=== PATIENT | male | born 1955 | race African-American/Black ===

== ENCOUNTER 2022-07-24 10:47 | Inpatient (IN) | payer OTHER ==
[2022-07-24 11:27] VITALS: BMI 22.7
[2022-07-24] MEDS ORDERED: ONDANSETRON *ODT* 4 MG TABLET SL PRN (14:25)
[2022-07-24] MEDS ORDERED: BISMUTH SUBSALICYLATE 524 MG/30 ML PO PRN (14:25)
[2022-07-24] MEDS ORDERED: NALOXONE HCL 0.4 MG/ML VIAL IM PRN (14:25)
[2022-07-24] MEDS ORDERED: BENZOCAINE/MENTHOL (CHLORASEPTIC ) LOZENGE MM PRN (14:25)
[2022-07-24] MEDS ORDERED: BENZONATATE 200 MG CAPSULE PO PRN (14:25)
[2022-07-24] MEDS ORDERED: guaiFENesin 600 MG TABLET.ER (FP) PO PRN (14:25)
[2022-07-24] MEDS ORDERED: P-EPHED 60MG/TRIPROLIDI 2.5MG TABLET PO PRN (14:25)
[2022-07-24] MEDS ORDERED: POLYETHYLENE GLYCOL (HEALTHYLAX) 3350 17 GM PACKET PO PRN (14:25)
[2022-07-24] MEDS ORDERED: LOPERAMIDE HCL 2 MG CAPSULE PO PRN (14:25)
[2022-07-24] MEDS ORDERED: NICOTINE 10 MG CARTRIDGE (INHALER) IH PRN (14:25)
[2022-07-24] MEDS ORDERED: ACETAMINOPHEN 325 MG TABLET (FP) PO PRN (14:25)
[2022-07-24] MEDS ORDERED: MAGNESIUM HYDROX 2400MG/30ML ORAL SUSPENSION 30 ML CUP PO PRN (14:25)
[2022-07-24] MEDS ORDERED: NALOXONE HCL (KLOXXADO) 8 MG SPRAY NS PRN (14:25)
[2022-07-24] MEDS ORDERED: IBUPROFEN 400 MG TABLET (FP) PO PRN (14:25)
[2022-07-24] MEDS: ASPIRIN 81 MG CHEWABLE TABLETS PO SCH (17:57)
[2022-07-24] MEDS: hydrOXYzine PAMOATE 25 MG CAPSULE (FP) PO PRN (17:57)
[2022-07-24] MEDS: LISINOPRIL 5 MG TABLET PO SCH (20:21)
[2022-07-24] MEDS: THIAMINE HCL 100 MG TABLET (FP) PO SCH (22:21)
[2022-07-24] MEDS: MELATONIN 5 MG TABLETS PO PRN (23:20)
[2022-07-25] MEDS ORDERED: methaDONE HCL 10 MG TABLET (FOR DETOX USE ONLY) PO ONE (10:03)
[2022-07-25] MEDS: chlordiazePOXIDE HCL 25 MG CAPSULE PO SCH ×3 (10:27→22:11)
[2022-07-25] MEDS: PRENATAL VITAMINS W/ FOLIC ACID TABLET (FP) PO SCH (10:27)
[2022-07-25] MEDS: LISINOPRIL 5 MG TABLET PO SCH (10:27)
[2022-07-25] MEDS: ASPIRIN 81 MG CHEWABLE TABLETS PO SCH (10:27)
[2022-07-25] MEDS: NICOTINE POLACRILEX 2 MG GUM BUC PRN (13:24)
[2022-07-25] MEDS: THIAMINE HCL 100 MG TABLET (FP) PO SCH (22:11)
[2022-07-25] MEDS: cloNIDine HCL 0.1 MG TABLET PO PRN (22:11)
[2022-07-25] MEDS: MELATONIN 5 MG TABLETS PO PRN (22:11)
[2022-07-26] MEDS: chlordiazePOXIDE HCL 25 MG CAPSULE PO SCH ×4 (05:51→22:12)
[2022-07-26] MEDS: ASPIRIN 81 MG CHEWABLE TABLETS PO SCH (10:18)
[2022-07-26] MEDS: LISINOPRIL 5 MG TABLET PO SCH (10:18)
[2022-07-26] MEDS: PRENATAL VITAMINS W/ FOLIC ACID TABLET (FP) PO SCH (10:18)
[2022-07-26] MEDS: MAG HYDROX/AL HYDROX/SIMETH 30 ML UNIT-DOSE CUP PO PRN (11:21)
[2022-07-26] MEDS: NICOTINE POLACRILEX 2 MG GUM BUC PRN (11:23)
[2022-07-26 11:25] LABS: HEMATOCRIT 33.2 % (35.4-49); MCH 30.9 pg (25.7-33.7); MCHC 33.1 g/dl (32.0-35.9); MEAN CELL VOLUME 93.6 fl (80-96); MEAN PLT VOLUME 9.9 fl (7.5-11.1); PLATELET COUNT 143 10^3/uL (134-434); RBC 3.55 M/mm3 (4.00-5.60); RDW 18.9 % (11.9-15.9); WHITE BLOOD COUNT 3.2 K/mm3 (4.0-10.0)
[2022-07-26 11:44] LABS: ALBUMIN 3.1 g/dl (3.4-5.0)
[2022-07-26 11:47] LABS: CALCIUM 8.9 mg/dL (8.5-10.1); CREATININE 0.9 mg/dL (0.55-1.3)
[2022-07-26 11:49] LABS: BILIRUBIN,TOTAL 0.4 mg/dL (0.2-1); TOT PROT 6.6 g/dl (6.4-8.2)
[2022-07-26] MEDS: NICOTINE 21 MG/24 HOURS TOPICAL PATCH TD SCH (14:54)
[2022-07-26] MEDS: IBUPROFEN 600 MG TABLET (FP) PO PRN (17:41)
[2022-07-26] MEDS: hydrOXYzine PAMOATE 25 MG CAPSULE (FP) PO PRN (22:12)
[2022-07-26] MEDS: THIAMINE HCL 100 MG TABLET (FP) PO SCH (22:12)
[2022-07-26] MEDS: MELATONIN 5 MG TABLETS PO PRN (22:12)
[2022-07-27] MEDS: chlordiazePOXIDE HCL 25 MG CAPSULE PO SCH ×5 (05:20→23:08)
[2022-07-27] MEDS: hydrOXYzine PAMOATE 25 MG CAPSULE (FP) PO PRN ×2 (06:34→22:25)
[2022-07-27] MEDS ORDERED: methaDONE HCL 10 MG TABLET (FOR DETOX USE ONLY) PO ONE (10:00)
[2022-07-27] MEDS: PRENATAL VITAMINS W/ FOLIC ACID TABLET (FP) PO SCH (10:39)
[2022-07-27] MEDS: NICOTINE 21 MG/24 HOURS TOPICAL PATCH TD SCH (10:39)
[2022-07-27] MEDS: LISINOPRIL 5 MG TABLET PO SCH (10:39)
[2022-07-27] MEDS: ASPIRIN 81 MG CHEWABLE TABLETS PO SCH (10:39)
[2022-07-27] MEDS: MAG HYDROX/AL HYDROX/SIMETH 30 ML UNIT-DOSE CUP PO PRN (17:25)
[2022-07-27] MEDS: THIAMINE HCL 100 MG TABLET (FP) PO SCH (22:24)
[2022-07-27] MEDS: MELATONIN 5 MG TABLETS PO PRN (22:25)
[2022-07-27] MEDS: cloNIDine HCL 0.1 MG TABLET PO PRN (22:25)
[2022-07-28] MEDS: chlordiazePOXIDE HCL 10 MG CAPSULE PO SCH ×4 (05:46→22:10)
[2022-07-28] MEDS: DICYCLOMINE HCL 10 MG CAPSULE PO PRN (05:49)
[2022-07-28] MEDS: PRENATAL VITAMINS W/ FOLIC ACID TABLET (FP) PO SCH (10:07)
[2022-07-28] MEDS: LISINOPRIL 5 MG TABLET PO SCH (10:08)
[2022-07-28] MEDS: ASPIRIN 81 MG CHEWABLE TABLETS PO SCH (10:09)
[2022-07-28] MEDS: NICOTINE 21 MG/24 HOURS TOPICAL PATCH TD SCH (10:09)
[2022-07-28] MEDS: IBUPROFEN 600 MG TABLET (FP) PO PRN (11:18)
[2022-07-28] MEDS: MAG HYDROX/AL HYDROX/SIMETH 30 ML UNIT-DOSE CUP PO PRN (13:23)
[2022-07-28] MEDS: THIAMINE HCL 100 MG TABLET (FP) PO SCH (22:10)
[2022-07-28] MEDS: hydrOXYzine PAMOATE 25 MG CAPSULE (FP) PO PRN (22:10)
[2022-07-28] MEDS: MELATONIN 5 MG TABLETS PO PRN (22:11)
[2022-07-29] MEDS: chlordiazePOXIDE HCL 10 MG CAPSULE PO SCH ×2 (06:00→16:38)
[2022-07-29] MEDS ORDERED: cloNIDine HCL 0.1 MG TABLET PO PRN (07:58)
[2022-07-29] MEDS ORDERED: methaDONE HCL 10 MG TABLET (FOR DETOX USE ONLY) PO ONE (10:00)
[2022-07-29] MEDS: PRENATAL VITAMINS W/ FOLIC ACID TABLET (FP) PO SCH (10:16)
[2022-07-29] MEDS: ASPIRIN 81 MG CHEWABLE TABLETS PO SCH (10:16)
[2022-07-29] MEDS: LISINOPRIL 5 MG TABLET PO SCH (10:17)
[2022-07-29] MEDS: NICOTINE 21 MG/24 HOURS TOPICAL PATCH TD SCH (10:17)
[2022-07-29] MEDS: IBUPROFEN 600 MG TABLET (FP) PO PRN (16:38)
[2022-07-29] MEDS: hydrOXYzine PAMOATE 25 MG CAPSULE (FP) PO PRN (16:40)
[2022-07-29] MEDS: MELATONIN 5 MG TABLETS PO PRN (22:15)
[2022-07-29] MEDS: THIAMINE HCL 100 MG TABLET (FP) PO SCH (22:15)
[2022-07-30] MEDS ORDERED: chlordiazePOXIDE HCL 10 MG CAPSULE PO ONE (05:00)
[2022-07-30] MEDS: DICYCLOMINE HCL 10 MG CAPSULE PO PRN (05:27)
[2022-07-30 09:51] VITALS: BP 166/97; PULSE 57; RESP 18; TEMP 96.9
[2022-07-30] MEDS: LISINOPRIL 5 MG TABLET PO SCH (10:09)
[2022-07-30] MEDS: PRENATAL VITAMINS W/ FOLIC ACID TABLET (FP) PO SCH (10:09)
[2022-07-30] MEDS: ASPIRIN 81 MG CHEWABLE TABLETS PO SCH (10:09)
[2022-07-30] MEDS: NICOTINE 21 MG/24 HOURS TOPICAL PATCH TD SCH (10:11)
== END 2022-07-30 11:00 | disposition home or self-care (01) | DRG 897 ==
LOC: YASAS 10:47 → Y6N 15:47
PROVIDERS: ADMIT Allergy & Immunology; ATTEND Surgery
PROC: HZ2ZZZZ Detoxification Services for Substance Abuse Treatment (ICD-10-PCS; principal; 2022-07-24)
DX: F11.23 Opioid dependence with withdrawal (principal); F33.1 Major depressive disorder, recurrent, moderate; F10.230 Alcohol dependence with withdrawal, uncomplicated; F17.210 Nicotine dependence, cigarettes, uncomplicated; I10 Essential (primary) hypertension; Z86.19 Personal history of other infectious and parasitic diseases
CPT/HCPCS: 36415; 71045-TC-FY; 80053; 85027; 86593; 86780; C9803-CS; U0003; U0005